=== PATIENT | female | born 1950 | race Caucasian/White ===

== ENCOUNTER 2017-04-01 21:11 | Emergency (ER) | payer OTHER ==
[2017-04-01] MEDS ORDERED: NAPROXEN SODIUM 220 MG TAB PO ONE ×2 (22:16→22:30)
--- NOTE | 2017-04-01 22:21 | EDPHY ---
H & P Stated Complaint: twisted L ankle hiking this morning Time Seen by Provider: 04/01/17 22:06 HPI/ROS: HPI The patient presents with a fall hiking at about 9:30 a.m. this morning. She was walking on a gravel surface and became unsteady and her ankle rolled both inward and outward. She had immediate ankle pain which was left-sided, dull, throbbing, radiating up her leg down to her foot. She has no numbness or tingling. She has no prior ankle injury. She was able to hike out, however this took several hours and she has just returned now.. REVIEW OF SYSTEMS Constitutional: No fever, no chills. Eyes: No discharge. ENT: No sore throat. Cardiovascular: No chest pain, no palpitations. Respiratory: No cough, no shortness of breath. Gastrointestinal: No abdominal pain, no vomiting. Genitourinary: No hematuria. Musculoskeletal: No back pain. Skin: No rashes. Neurological: No headache. PMHx: Hypothyroidism Soc Hx: Lives in [place], has a dog PHYSICAL General Appearance: Alert, no distress Eyes: Pupils equal and round no pallor or injection ENT, Mouth: Mucous membranes moist Respiratory: There are no retractions, lungs are clear to auscultation Cardiovascular: Regular rate and rhythm Gastrointestinal: Abdomen is soft and non-tender, no masses, bowel sounds normal Neurological: A&O, moves all extremities Skin: Warm and dry, no rashes Musculoskeletal: Left ankle is slightly edematous, tender over lateral malleolus, limited range of motion secondary to pain, left foot is tender laterally with mild edema, sensation is intact to light touch, there is 2+ DP pulses Extremities: symmetrical, full range of motion Psychiatric: Patient is oriented X 3, there is no agitation Source: Patient Exam Limitations: No limitations - Personal History Current Tetanus/Diphtheria Vaccine: Yes - Medical/Surgical History Hx Asthma: No Hx Chronic Respiratory Disease: No Hx Diabetes: No Hx Cardiac Disease: No Hx Renal Disease: No Hx Cirrhosis: No Hx Alcoholism: No Hx HIV/AIDS: No Hx Splenectomy or Spleen Trauma: No Other PMH: PMHx: hypothyroid. PSHx: tonsillectomy, R knee - Social History Smoking Status: Never smoked Constitutional: O2 Delivery Mode Room Air Allergies/Adverse Reactions: codeine Allergy (Verified 06/15/17 21:23) ibuprofen Allergy (Verified 04/01/17 21:23) Home Medications: Medication Instructions Recorded Synthroid 03/29/13 Medical Decision Making - Diagnostics Imaging Results: Imaging Impressions Ankle X-Ray 04/01/17 21:42 Impression: 1. Oblique distal fibula metaphyseal fracture, with slight displacement. 2. Possible nondisplaced distal tibia medial malleolus fracture. 3. No widening of the ankle mortise. Foot X-Ray 04/01/17 22:16 Impression: 1. Distal left fibula metaphyseal comminuted fracture. 2. No definite additional fractures of the left foot. 3. 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 Imaging: Discussed imaging studies w/ call center coordinator Radiologist, I viewed and interpreted images myself Procedures: SPLINT Procedure: Splint placement. A ortho glass posterior leg splint was applied to the left leg by the tech. After application of the splint I returned and re-examined the patient. The splint was adequately immobilizing the joint and distal to the splint the patient's circulation and sensation was intact. Differential Diagnosis: This is a 66-year-old female who presents with a fall which occurred earlier today, injuring her left ankle. She has been weight-bearing, however has significant pain. Differential diagnosis includes ankle fracture, ankle sprain, foot fracture, foot sprain. In the emergency room, plain films were obtained which demonstrated distal fibular fracture which is nondisplaced. She was placed in a posterior short- leg ankle splint. I have given her Naprosyn for pain per her request. She will be discharged with orthopedic follow-up. - Data Points Medications Given: Discontinued Medications Naproxen (Aleve) 250 mg PO EDNOW ONE Stop: 04/01/17 22:17 Last Admin: 04/01/17 22:37 Dose: Not Given Naproxen (Aleve) 220 mg PO EDNOW ONE Stop: 04/01/17 22:31 Last Admin: 04/01/17 22:36 Dose: 220 mg Departure - Departure Disposition: Home, Routine, Self-Care Clinical Impression: Left fibular fracture Qualifiers: Encounter type: initial encounter Fibula location: shaft Fracture type: closed Fracture morphology: oblique Fracture alignment: nondisplaced Qualified Code(s) : S82.435A - Nondisplaced oblique fracture of shaft of left fibula, initial encounter for closed fracture Condition: Good Instructions: Ankle Fracture (ED) Additional Instructions: I recommend that you take ibuprofen or Tylenol every 6 hours as needed for the pain. Please elevate your leg as much as possible. Please do not put any weight on her leg. Please call [facility] to arrange for follow-up for this fracture. You should be seen by the orthopedist in the next 1 week. Referrals: José Manuel Root MD [Medical Doctor] - As per Instructions
[2017-04-01 23:53] VITALS: BP 128/70; PULSE 82; RESP 16; TEMP 98.8; O2SAT 95
== END 2017-04-01 23:45 | disposition home or self-care (01) ==
DX: S82.435A Nondisplaced oblique fracture of shaft of left fibula, initial encounter for closed fracture (principal); W18.39XA Other fall on same level, initial encounter; Y99.8 Other external cause status; Y93.01 Activity, walking, marching and hiking